=== PATIENT | female | born 1990 | race Caucasian/White ===

== ENCOUNTER 2018-06-30 15:04 | Emergency (ER) | payer BC ==
[2018-06-30] MEDS ORDERED: traMADol 50 MG Tab PO ONE (15:48)
[2018-06-30] MEDS ORDERED: cefTRIAXone 1 GM, Lidocaine 1% 2.1 ML IM ONE ×2 (15:48)
--- NOTE | 2018-06-30 22:32 | ER ---
SUBJECTIVE: The patient is a 27-year-old female who recently had a right carpal tunnel release on June 05. She [place] a water park just recently and wound became infected, she hit it, it is now red and swollen and had a little bit of drainage. She has not seen her orthopedist. She comes into emergency room today. No fevers. No other issues. PAST MEDICAL HISTORY: Significant for carpal tunnel syndrome, she had a right carpal tunnel release on June 05. CURRENT MEDICATIONS: Denied. ALLERGIES: Denied. REVIEW OF SYSTEMS: Denied except pain and inflammation and apparent infection of the right carpal tunnel release surgical site. Please see HPI. OBJECTIVE: Vital Signs: Stable. She is afebrile. Ambulatory. Good historian. HEENT: Normocephalic and atraumatic. No respiratory distress. Extremities: Focused exam of the right upper extremity shows a scar running down the axis of the right arm across the wrist in typical carpal tunnel release fashion, there is a small amount of dehiscence in the middle of the wound, there is a scant amount of drainage out of this, it was cultured. The margins of the wound are somewhat red, inflamed, and slightly warm. She is able to use her hand. No compartment syndrome. Good pulses. ASSESSMENT: Post surgical wound infection of right carpal tunnel release site. PLAN: Recommend no further water park until it is completely healed, keep clean and dry with exception of just soak it in warm water, Epsom salts, mild detergent, and one drop of bleach. Can do this 4 to 8 times a day for about 10 to 15 minutes. Prescription for Bactrim DS. The patient states she always gets yeast infection, so also gave a prescription of Diflucan. Elevate if throbs. Take Tylenol and ibuprofen for any pain. Follow up with PCP immediately or call surgeon in the morning RYAN to alert to the fact that there is a wound infection and try to see a surgeon RYAN. Watch very closely. [facility] /[id number]
== END 2018-06-30 16:31 | disposition home or self-care (01) ==
LOC: DL.ED 15:04
DX: T81.49XA Infection following a procedure, other surgical site, initial encounter (principal)
CPT/HCPCS: 87070; 87077; 87186; 87205; 96372; 99283; A9270; J0696; J2001